=== PATIENT | female | born 1990 | race Caucasian/White ===

== ENCOUNTER 2020-09-17 08:30 | Emergency (ER) | payer MEDICAID ==
[~2020-09-17] VITALS: Ht 154.9 cm; Wt 54.4 kg
[2020-09-17 08:42] VITALS: BP_SYST 112
[2020-09-17] MEDS ORDERED: LIDOCAINE/EPI 1% 1:100000 20 ML VIAL INJ ONE (09:00)
[2020-09-17] MEDS ORDERED: BACITRACIN 1 GM OINT TP ONE (09:00)
[2020-09-17 09:31] VITALS: BP_SYST 112
== END 2020-09-17 09:32 | disposition home or self-care (01) ==
LOC: SED 08:30
DX: S01.81XA Laceration without foreign body of other part of head, initial encounter (principal); W22.8XXA Striking against or struck by other objects, initial encounter; Y93.89 Activity, other specified; Y92.89 Other specified places as the place of occurrence of the external cause; Y99.8 Other external cause status
CPT/HCPCS: 99282

== ENCOUNTER 2021-10-06 09:08 | Emergency (ER) | payer MEDICAID ==
[~2021-10-06] VITALS: Ht 152.4 cm; Wt 52.2 kg
[2021-10-06 09:13] VITALS: BP_SYST 114
--- NOTE | 2021-10-06 09:29 | NUR ---
place patient in room 4, provided report to GALDINO Dueñas and GALDINO Richmond
--- NOTE | 2021-10-06 09:30 | NUR ---
Pt came from [facility] c/o neck pain that started at 0400 rated a 8/10 pain. Pt states that she fell on her butt last night, denies hitting her head and denies losing consciousness. Pt is A&O x4, ambulatory, and follows simple commands. Pt reports history of 2 c-sections, an appendectomy, and a fall in 2010 in which she dislocated her collarbone. Patient is connected to monitor and safety precautions are in place.
--- NOTE | 2021-10-06 09:42 | NUR ---
MD is at bedside with patient.
[2021-10-06] MEDS ORDERED: KETOROLAC TROMETHAMINE 60 MG/2 ML VIAL IM ONE (09:45)
[2021-10-06] MEDS ORDERED: IBUP-1969 PO (09:52)
[2021-10-06] MEDS ORDERED: CYCL10TA24 PO (09:52)
[2021-10-06] MEDS ORDERED: ACET-2634 PO (09:52)
[2021-10-06 11:38] VITALS: BP_SYST 121
--- NOTE | 2021-10-06 11:38 | NUR ---
A/OX4 VSS VERBALIZED UNDERSTANDING OF DC INSTRUCTIONS, AMBULATED WITH STEADY GAIT, ANSWERED ALL QUESTIONS.
== END 2021-10-06 11:40 | disposition home or self-care (01) ==
LOC: SED 09:08
DX: S16.1XXA Strain of muscle, fascia and tendon at neck level, initial encounter (principal); W01.0XXA Fall on same level from slipping, tripping and stumbling without subsequent striking against object, initial encounter; Y93.E5 Activity, floor mopping and cleaning; Y92.89 Other specified places as the place of occurrence of the external cause; Y99.8 Other external cause status
CPT/HCPCS: 81025; 96372; 99283; J1885